=== PATIENT | female | born 1960 | race Caucasian/White ===

== ENCOUNTER 2021-03-20 13:46 | Emergency (ER) | payer MEDICAID ==
[~2021-03-20] VITALS: Ht 157.5 cm; Wt 61.2 kg
[2021-03-20 13:57] VITALS: BP_SYST 122
--- NOTE | 2021-03-20 14:00 | NUR ---
ER examining patient [facility].
--- NOTE | 2021-03-20 14:30 | NUR ---
Pt presents to ED bib ALCS for hypoglycemia and hypotension
--- NOTE | 2021-03-20 15:00 | NUR ---
BS 135
[2021-03-20] MEDS ORDERED: DEXTROSE 50% JECT 50 ML DISP.SYRIN ONE (16:28)
--- NOTE | 2021-03-20 16:30 | NUR ---
Pt medicated for hypoglycemia BS45,pt given 1 amp D50.
[2021-03-20 16:57] LABS: BASOPHILS % (AUTO) 0.6 % (0.0-2.0); EOSINOPHILS % (AUTO) 0.1 % (0.0-4.0); HEMATOCRIT 36.8 % (36-48); HEMOGLOBIN 12.2 g/dL (12.0-16.0); LYMPHOCYTES # (AUTO) 0.5 K/uL (1.0-5.5); LYMPHOCYTES % (AUTO) 14.8 % (20.5-51.5); MEAN CORPUSCULAR HEMOGLOBIN 27 pg (27-31); MEAN CORPUSCULAR HGB CONC 33 % (32-36); MEAN CORPUSCULAR VOLUME 80 fL (79.0-98.0); MONOCYTES # (AUTO) 0.2 K/uL (0.0-1.0); MONOCYTES % (AUTO) 6.6 % (1.7-9.3); NEUTROPHILS # (AUTO) 2.5 K/uL (1.8-7.7); NEUTROPHILS % (AUTO) 77.9 % (40.0-70.0); PLATELET COUNT (AUTO) 124 K/uL (130-430); RED BLOOD CELL COUNT(AUTO) 4.59 MIL/uL (4.2-6.2); RED CELL DISTRIBUTION WIDTH 13.7 % (9.0-15.0); WHITE BLOOD COUNT (AUTO) 3.2 K/uL (4.8-10.8)
[2021-03-20 17:08] LABS: CALCIUM 8.1 mg/dL (8.4-11.0); CREATININE 0.68 mg/dL (0.55-1.30); POTASSIUM 3.2 mmol/L (3.5-5.1)
[2021-03-20 17:14] LABS: TOTAL BILIRUBIN 0.1 mg/dL (0.0-1.0)
[2021-03-20 20:52] VITALS: BP_SYST 116
--- NOTE | 2021-03-20 20:52 | NUR ---
Patient given written and verbal discharge instructions and verbalizes understanding. ER MD discussed with patient the results and treatment provided. Patient in stable condition. ID arm band removed. IV catheter removed intact and dressing applied, no active bleeding. No Rx given. Patient educated on pain management and to follow up with PMD. Pain Scale 0/10 Opportunity for questions provided and answered.
== END 2021-03-20 20:52 | disposition home or self-care (01) ==
LOC: SED 13:46
DX: E11.649 Type 2 diabetes mellitus with hypoglycemia without coma (principal)
CPT/HCPCS: 36415; 80053; 85025; 99283